=== PATIENT | male | born 1970 | race Caucasian/White ===

== ENCOUNTER 2017-01-31 12:11 | Emergency (ER) | payer MEDICAID ==
[~2017-01-31] VITALS: Wt 69.0 kg
[2017-01-31] MEDS ORDERED: IBUPROFEN 600 MG TAB PO ONE (15:30)
--- NOTE | 2017-01-31 16:01 | RADRPT ---
PROCEDURE: XR Finger. CLINICAL INDICATION: Injury TECHNIQUE: Three views of the right fourth finger are available for review. COMPARISON: None available FINDINGS: There is a mildly comminuted and minimally displaced fracture of the fourth distal phalanx involving the tuft. No evidence for articular surface involvement. The remaining osseous structures are int act. There is no radiopaque foreign body. Overlying soft tissue swelling and irregularity is seen related to the injury. IMPRESSION: 1. Minimally displaced and comminuted fracture of the fourth distal phalanx. RPTAT: AA .Yvon Lucio MD, Date Time Electronically viewed and signed by .Yvon Lucio MD, on 01/31/2017 16:00 .d/
[2017-01-31] MEDS ORDERED: LIDOCAINE 1% (MDV) 20 ML INJ SC ONE (16:30)
[2017-01-31] MEDS ORDERED: CEPH-443 PO (17:01)
[2017-01-31] MEDS ORDERED: ACET1TAB40 PO (17:01)
[2017-01-31] MEDS ORDERED: IBUP-1542 PO (17:01)
--- NOTE | 2017-01-31 17:12 | ERD ---
ER Documentation Chief Complaint Date/Time DATE: 01/31/17 TIME: 17:06 Chief Complaint RIGHT 4TH DIGIT CAUGHT IN CAR DOOR. WITH BLEEDING NOTED HPI This 38-year-old male cut his right fourth digit in a car door today. Complaints of a bleeding laceration of the tip. Denies restricted range of motion weakness. Tetanus is up-to-date per ROS All systems reviewed and are negative except as per history of present illness. Medications Home Meds Active Scripts Ibuprofen* (Motrin*) 600 Mg Tab, 600 MG PO Q6, #15 TAB Prov:JUANITA HAYES MD 01/31/17 Acetaminophen with Codeine (Acetaminophen-Cod #3 Tablet) 1 Each Tablet, 1 TAB PO Q6H Y for PAIN, #7 TAB Prov:JUANITA HAYES MD 01/31/17 Cephalexin* (Keflex*) 500 Mg Capsule, 500 MG PO QID for 7 Days, CAP Prov:JUANITA HAYES MD 01/31/17 Allergies Allergies: Coded Allergies: No Known Allergies (Unverified Allergy, Unknown, 10/16/14) PMhx/Soc History of Surgery: No Anesthesia Reaction: No Hx Neurological Disorder: No Hx Respiratory Disorders: No Hx Cardiac Disorders: No Hx Psychiatric Problems: No Hx Miscellaneous Medical Probl: No Hx Alcohol Use: No Hx Substance Use: No Hx Tobacco Use: No Physical Exam Vitals Vital Signs Date Time Temp Pulse Resp B/P Pulse Ox O2 Delivery O2 Flow Rate FiO2 01/31/17 12:20 98.6 76 20 144/81 97 Physical Exam Const: [] Alert, [id number] per Head: Atraumatic Eyes: Normal Conjunctiva ENT: Normal External Ears, Nose and Mouth. Neck: Full range of motion..~ No meningismus. Resp: Clear to auscultation bilaterally Cardio: Regular rate and rhythm, no murmurs Abd: Soft, non tender, non distended. Normal bowel sounds Skin: No petechiae or rashes. Across the tip of the right fourth digit there is approximately 2 cm laceration parallel to the nail. There is no restricted range of motion weakness or active bleeding. Back: No midline or flank tenderness Ext: No cyanosis, or edema Neur: Awake and alert Psych: Normal Mood and Affect Results 24 hrs Current Medications Medications (Trade) Dose Ordered Sig/Sherif Route PRN Reason Start Time Stop Time Status Last Admin Dose Admin Ibuprofen (Motrin) 600 mg ONCE ONCE PO 01/31/17 15:30 01/31/17 15:31 DC 01/31/17 15:31 Lidocaine (Xylocaine 1% (Mdv) 20 ml) 20 ml ONCE ONCE SC 01/31/17 16:30 01/31/17 16:31 DC Procedures/MDM X-ray right ring finger 2V Interpreted by me: Bones: There is a linear tuft fracture across the right fourth digit. Joints: [No dislocation] Foreign body: [None]. Impression-minimally displaced right fourth digit tuft fracture Right finger laceration was irrigated copiously with normal saline. 2 cc of lidocaine was used to perform a digital block. 5 4-0 nylon sutures were used to reapproximate the laceration. Patient tolerated procedure well and the wound was dressed. Patient is given Keflex 500 mg by mouth for possible open fracture. Patient was placed in the right fourth digit metal splint. Splint Assessment: Neurovascularly intact post splint placement with good fit. Patient presents with a possible open fracture the right fourth digit distally with a tuft fracture. He was discharged home with prescription of Keflex, Tylenol 3 and ibuprofen and instructed to follow-up his primary doctor in orthopedist for further evaluation management. Patient was advised to have a wound check in 2 days and suture removal in 10 days. He was advised that he may need authorization from his primary care doctor. Departure Diagnosis: Primary Impression: Fracture Additional Impression: Laceration Condition: Stable Patient Instructions: Fracture, Finger (Open), Laceration, Hand Referrals: RICARDO SCHWARTZ MD Additional Instructions: cheque 2 reed para cheque para infeccion. cheque 10 reed para saca los puntos / grapas. Va al quiñones doctor/ specialista para mas evaluacon en el proximo semana. posiblemente necesita autorizado de quiñones doctor primario para specialista. Regresa para fiebre, o mas o nueva simptomas. JUANITA HAYES MD Jan 31, 2017 17:12
[2017-01-31 17:14] VITALS: BP 129/70; PULSE 66; RESP 16
== END 2017-01-31 17:17 | disposition home or self-care (01) ==
LOC: FTE 12:11
DX: S62.634A Displaced fracture of distal phalanx of right ring finger, initial encounter for closed fracture (principal); W23.0XXA Caught, crushed, jammed, or pinched between moving objects, initial encounter; Y92.9 Unspecified place or not applicable
CPT/HCPCS: 12001; 73140; Z7502; Z7610

== ENCOUNTER 2017-02-02 07:28 | Emergency (ER) | payer MEDICAID ==
[~2017-02-02] VITALS: Wt 70.0 kg
[~2017-02-02 07:28] MED LIST: ACET1TAB40 PO; CEPH-443 PO; IBUP-1542 PO
[2017-02-02] MEDS ORDERED: FLUT9.9S NASAL (08:39)
[2017-02-02] MEDS ORDERED: CETI10CA PO (08:39)
--- NOTE | 2017-02-02 08:44 | ERD ---
ER Documentation Chief Complaint Date/Time DATE: 02/02/17 TIME: 08:41 Chief Complaint RIGHT RING FINGER SUTURE HERE FOR RECHECK HPI This a 46-year-old male who presents to the emergency department today for a wound check of a laceration that he sustained a couple of days ago after slamming his hand in a door. States he has some sinus congestion. Denies any fevers or chills. States he is taking his antibiotics as prescribed. Denies any significant pain. ROS All systems reviewed and are negative except as per history of present illness. Medications Home Meds Active Scripts Cetirizine Hcl* (Zyrtec*) 10 Mg Capsule, 10 MG PO DAILY, #14 TAB.CHEW Prov:HÉCTOR MIN PA-C 02/02/17 Fluticasone Propionate (Flonase Allergy Relief) 9.9 Ml [place].susp, 2 SPRAY NASAL DAILY, #1 BOTTLE TO EACH NOSTRIL Prov:HÉCTOR MIN PA-C 02/02/17 Ibuprofen* (Motrin*) 600 Mg Tab, 600 MG PO Q6, #15 TAB Prov:JUANITA HAYES MD 01/31/17 Acetaminophen with Codeine (Acetaminophen-Cod #3 Tablet) 1 Each Tablet, 1 TAB PO Q6H Y for PAIN, #7 TAB Prov:JUANITA HAYES MD 01/31/17 Cephalexin* (Keflex*) 500 Mg Capsule, 500 MG PO QID for 7 Days, CAP Prov:JUANITA HAYES MD 01/31/17 Allergies Allergies: Coded Allergies: No Known Allergies (Unverified Allergy, Unknown, 10/16/14) PMhx/Soc Medical and Surgical Hx: pt denies Medical Hx, pt denies Surgical Hx History of Surgery: No Anesthesia Reaction: No Hx Neurological Disorder: No Hx Respiratory Disorders: No Hx Cardiac Disorders: No Hx Psychiatric Problems: No Hx Miscellaneous Medical Probl: No Hx Alcohol Use: No Hx Substance Use: No Hx Tobacco Use: No Smoking Status: Never smoker Physical Exam Vitals Vital Signs Date Time Temp Pulse Resp B/P Pulse Ox O2 Delivery O2 Flow Rate FiO2 02/02/17 07:35 98.0 77 21 140/81 98 Physical Exam Const: No acute distress Head: Atraumatic Eyes: Normal Conjunctiva ENT: Normal External Ears, Nose and Mouth. Neck: Full range of motion..~ No meningismus. Resp: Clear to auscultation bilaterally Cardio: Regular rate and rhythm, no murmurs Skin: Right hand fourth finger with no erythema or warmth. No purulent drainage. Evidence of sutures placed. Back: No midline or flank tenderness MSK: Right hand fourth finger with no erythema or warmth. No purulent drainage. Full active range of motion. Evidence of sutures placed. Neur: Awake and alert Psych: Normal Mood and Affect Procedures/MDM This 38-year-old male who presents to the emergency department today for wound check of sutures that he had placed 2 days ago after sustaining an injury of slamming his finger in a door. On physical exam wound appears to be healing well and is well approximated. There is no purulent drainage, warmth, significant tenderness. Low suspicion for sepsis, deep space infection, cellulitis. Patient was instructed to return in 5 to days for suture removal. He was instructed to continue taking his antibiotics as prescribed. Patient was also complaining of some sinus congestion. He is afebrile and otherwise well-appearing. Do not feel he requires antibiotics at this time. Patient was given a prescription for Flonase and Zyrtec. At this time the patient is stable for discharge and outpatient management. Patient should follow up with their PCP in the next 1-2 days. They may return to the emergency department sooner for any persistent or worsening of symptoms. Patient understood and agreed with the plan. Departure Diagnosis: Primary Impression: Encounter for wound re-check Additional Impression: Sinus congestion Condition: Fair Patient Instructions: Wound Care, Wound Check, Lac F/U (No Infection) [facility]errals[facility] Usted se lyons hecho un examen mdico de control que le indica que no est en lillian condicin que requiera tratamiento urgente en el Departamento de Emergencia. Un estudio ms profundo y el tratamiento de quiñones condicin pueden esperar sin ningn riesgo hasta que usted sea atendida/o en el consultorio de quiñones mdico o lillian cl vince. Es responsabilidad suya arreglar lillian nilesh para el seguimiento del funmilayo. MANEJO DE CONDICIONES NO URGENTES EN EL FUTURO 1) Si usted tiene un mdico de atencin primaria: Usted debera llamar a quiñones mdico de atencin primaria antes de venir al departamento de emergencia. Despus de las horas de consultorio, quiñones doctor o quiñones asociado/a est disponible por telfono. El mdico o enfermero de kenan en el servicio telefnico puede asesorarle por tom medio para atender el problema, o funmilayo contrario se puede programar lillian nilesh. 2) Si usted no tiene un mdico de atencin primaria: Llame al mdico o clnica de referencia que aparece abajo thom las horas de consultorio para hacer lillian nilesh para que le vean. CLINICAS: [facility] [phone] [address] [facility] [phone] [facility] [phone] [address] [facility]. [facility] [phone] [address] [facility] [facility] [phone] [address] [facility] [phone] [address] Additional Instructions: Llame al doctor MAANA y deandre lillian NILESH PARA DENTRO DE 1-2 PIKE.Dgale a la secretaria que nosotros le instruimos hacer esta nilesh.Avise o llame si quiñones condicin se empeora antes de la nilesh. Regresa aqui si peor o no mejor. Keep wound clean and dry Return in 5-7 days for suture removal Continue taking antibiotics as prescribed Take Flonase and Zyrtec for nasal congestion HÉCTOR MIN PA-C Feb 02, 2017 08:44
== END 2017-02-02 09:18 | disposition home or self-care (01) ==
LOC: FTE 07:28
DX: Z48.01 Encounter for change or removal of surgical wound dressing (principal); R09.81 Nasal congestion
CPT/HCPCS: 99283

== ENCOUNTER 2017-02-09 06:32 | Emergency (ER) | payer MEDICAID ==
[~2017-02-09] VITALS: Ht 165.1 cm; Wt 79.7 kg
[~2017-02-09 06:32] MED LIST changes: +CETI10CA PO; +FLUT9.9S NASAL
[2017-02-09 06:35] VITALS: Ht 165.1 cm; Wt 79.7 kg
--- NOTE | 2017-02-09 16:30 | ERD ---
ER Documentation Chief Complaint Date/Time DATE: 02/09/17 TIME: 16:24 Chief Complaint right 4th digit suture removal HPI 46-year-old male presented to ED today for suture removal. Patient stated that he still has pain on his injured finger, but denies increase erythema or swelling. Denies fever or chills. ROS All systems reviewed and are negative except as per history of present illness. Medications Home Meds Active Scripts Cetirizine Hcl* (Zyrtec*) 10 Mg Capsule, 10 MG PO DAILY, #14 TAB.CHEW Prov:HÉCTOR MIN PA-C 02/02/17 Fluticasone Propionate (Flonase Allergy Relief) 9.9 Ml [place].susp, 2 SPRAY NASAL DAILY, #1 BOTTLE TO EACH NOSTRIL Prov:HÉCTOR MIN PA-C 02/02/17 Ibuprofen* (Motrin*) 600 Mg Tab, 600 MG PO Q6, #15 TAB Prov:JUANITA HAYES MD 01/31/17 Acetaminophen with Codeine (Acetaminophen-Cod #3 Tablet) 1 Each Tablet, 1 TAB PO Q6H Y for PAIN, #7 TAB Prov:JUANITA HAYES MD 01/31/17 Cephalexin* (Keflex*) 500 Mg Capsule, 500 MG PO QID for 7 Days, CAP Prov:JUANITA HAYES MD 01/31/17 Allergies Allergies: Coded Allergies: No Known Allergies (Unverified Allergy, Unknown, 10/16/14) PMhx/Soc Medical and Surgical Hx: pt denies Medical Hx, pt denies Surgical Hx History of Surgery: No Anesthesia Reaction: No Hx Neurological Disorder: No Hx Respiratory Disorders: No Hx Cardiac Disorders: No Hx Psychiatric Problems: No Hx Miscellaneous Medical Probl: No Hx Alcohol Use: No Hx Substance Use: No Hx Tobacco Use: No Smoking Status: Never smoker Physical Exam Vitals Vital Signs Date Time Temp Pulse Resp B/P Pulse Ox O2 Delivery O2 Flow Rate FiO2 02/09/17 06:35 97.6 76 18 131/76 99 Physical Exam General impression: Well-developed, well-nourished. Alert, oriented, in no acute distress Head: Normocephalic, atraumatic. Respiration: Normal respiratory effort. Lungs clear to auscultate bilaterally. No wheezes, rales or rhonchi. Cardiovascular: Regular rate and rhythm. No murmurs or extra heart sounds. Extremities: Suture noted on the dorsal aspect the right fourth finger. Full range of motion noted on the affected finger. Neurovascularly intact Neuro: Mental status normal, speech normal. [employer] grossly intact. Skin: Normal turgor. No rash or lesions. Psych: Normal mood and affect. Procedures/MDM Suture Removal by me: Sutures removed with tweezers and scissors without incident. Wound shows no evidence of infection, foreign body, neurologic injury, vascular injury, open joint or tendon laceration. Patient is noted to have a tuft fracture of the injured finger all the initial visit, however he is not wearing a splint. The area of injury was immobilized with a metal finger splint. Patient was noted to be comfortable and neurovascularly intact both before and after the immobilization. Patient to follow up PRN. Departure Diagnosis: Primary Impression: Encounter for removal of sutures Condition: Good Patient Instructions: Fracture, Finger (Open), Suture Removal, No Complication Referrals: [facility] Usted se lyons hecho un examen mdico de control que le indica que no est en lillian condicin que requiera tratamiento urgente en el Departamento de Emergencia. Un estudio ms profundo y el tratamiento de quiñones condicin pueden esperar sin ningn riesgo hasta que usted sea atendida/o en el consultorio de quiñones mdico o lillian cl vince. Es responsabilidad suya arreglar lillian nilesh para el seguimiento del funmilayo. MANEJO DE CONDICIONES NO URGENTES EN EL FUTURO 1) Si usted tiene un mdico de atencin primaria: Usted debera llamar a quiñones mdico de atencin primaria antes de venir al departamento de emergencia. Despus de las horas de consultorio, quiñones doctor o quiñones asociado/a est disponible por telfono. El mdico o enfermero de kenan en el servicio telefnico puede asesorarle por tom medio para atender el problema, o funmilayo contrario se puede programar lillian nilesh. 2) Si usted no tiene un mdico de atencin primaria: Llame al mdico o clnica de referencia que aparece abajo thom las horas de consultorio para hacer lillian nilesh para que le vean. CLINICAS: [facility] [phone] [facility] [phone] [facility] [phone] [place] [phone] [place] [address] [phone] [place] [phone] [address] Additional Instructions: Llame al doctor nombrado abajo (Referral Sources) MAANA y deandre lillian NILESH PARA DENTRO DE LILLIAN SEMANA. Dgale a la secretaria que nosotros le instruimos hacer esta nilesh.Avise o llame si quiñones condicin se empeora antes de la nilesh. HAN LUJAN NP Feb 09, 2017 16:30
== END 2017-02-09 07:18 | disposition home or self-care (01) ==
LOC: FTE 06:32
DX: Z48.02 Encounter for removal of sutures (principal)
CPT/HCPCS: 29130; Z7502

== ENCOUNTER 2017-08-12 10:22 | Emergency (ER) | payer MEDICAID ==
[~2017-08-12] VITALS: Wt 78.5 kg
[2017-08-12] MEDS ORDERED: SLF10OP5 RIGHT EYE (10:56)
[2017-08-12] MEDS ORDERED: TETRACAINE 0.5% 4 ML OPH LEFT EYE ONE (11:00)
[2017-08-12] MEDS ORDERED: FLUORESCEIN STRIP RIGHT EYE ONE (11:00)
--- NOTE | 2017-08-12 12:12 | ERD ---
ER Documentation Chief Complaint Date/Time DATE: 08/12/17 TIME: 11:52 Chief Complaint R EYE PAIN X 2 DAY HPI 47-year-old male complaining of foreign body in right eye. Patient believes there is a piece of trash in his eye and is unsure exactly what the object is. Patient wears glasses but no contact lenses. Denies changes in vision. Has not used any medications in the eye. Medical problems: Denies NKDA Surgical history: Denies ROS All systems reviewed and are negative except as per history of present illness. Medications Home Meds Active Scripts Sulfacetamide Sodium* (Bleph-10*) 10%-5 Ml Opht Drops, 1 DROP RIGHT EYE Q3H, #1 EA Prov:ABEL SOLORIO PA-C 08/12/17 Cetirizine Hcl* (Zyrtec*) 10 Mg Capsule, 10 MG PO DAILY, #14 TAB.CHEW Prov:HÉCTOR MIN PA-C 02/02/17 Fluticasone Propionate (Flonase Allergy Relief) 9.9 Ml [place].susp, 2 SPRAY NASAL DAILY, #1 BOTTLE TO EACH NOSTRIL Prov:HÉCTOR MIN PA-C 02/02/17 Ibuprofen* (Motrin*) 600 Mg Tab, 600 MG PO Q6, #15 TAB Prov:JUANITA HAYES MD 01/31/17 Acetaminophen with Codeine (Acetaminophen-Cod #3 Tablet) 1 Each Tablet, 1 TAB PO Q6H Y for PAIN, #7 TAB Prov:JUANITA HAYES MD 01/31/17 Cephalexin* (Keflex*) 500 Mg Capsule, 500 MG PO QID for 7 Days, CAP Prov:JUANITA HAYES MD 01/31/17 Allergies Allergies: Coded Allergies: No Known Allergies (Unverified Allergy, Unknown, 10/16/14) PMhx/Soc History of Surgery: No Anesthesia Reaction: No Hx Neurological Disorder: No Hx Respiratory Disorders: No Hx Cardiac Disorders: No Hx Psychiatric Problems: No Hx Miscellaneous Medical Probl: No Hx Alcohol Use: No Hx Substance Use: No Hx Tobacco Use: No Smoking Status: Former smoker Physical Exam Vitals Vital Signs Date Time Temp Pulse Resp B/P Pulse Ox O2 Delivery O2 Flow Rate FiO2 9/22/17 10:27 98.0 79 18 129/83 99 Physical Exam GENERAL: The patient is well-appearing, well-nourished, in no acute distress HEENT: Foreign body noted over the cornea. No active drainage. Pupils equal round and reactive to light. Extraocular movements intact. NECK: C-spine is soft and supple. There is no meningismus. There is no cervical lymphadenopathy. No JVD. No bruits. No goiter. CHEST: Clear to auscultation bilaterally. There are no rales, wheezes or rhonchi. HEART: Regular rate and rhythm. No murmurs, clicks, rubs or gallops. No S3 or S4. Results 24 hrs Current Medications Medications (Trade) Dose Ordered Sig/Sherif Route PRN Reason Start Time Stop Time Status Last Admin Dose Admin Tetracaine HCl (Tetracaine 0.5% Steri-Unit Tereza) 1 drop ONCE ONCE LEFT EYE 08/12/17 11:00 08/12/17 11:01 DC Fluorescein Sodium (Wshwu-N-Byqrp) 1 strip ONCE ONCE RIGHT EYE 08/12/17 11:00 08/12/17 11:01 DC Procedures/MDM ER course: Tetracaine and fluorescein stain used to see foreign body. Using insulin syringe foreign body was removed. Patient tolerated procedure well. No iatrogenic injury. MDM: I have low suspicion for visual deficits or ocular injuries. Patient will be placed on prophylactic antibacterial drops given foreign body was removed. Patient is recommended to follow-up with primary care within 1-2 days for close evaluation. Patient still symptoms change or worsen to return to the ER. All questions answered at discharge. Departure Diagnosis: Primary Impression: Eye foreign body Condition: Stable Patient Instructions: Corneal Foreign Body, Removed Referrals: [facility] YOU HAVE RECEIVED A MEDICAL SCREENING EXAM AND THE RESULTS INDICATE THAT YOU DO NOT HAVE A CONDITION THAT REQUIRES URGENT TREATMENT IN THE EMERGENCY DEPARTMENT. FURTHER EVALUATION AND TREATMENT OF YOUR CONDITION CAN WAIT UNTIL YOU ARE SEEN IN YOUR DOCTORS OFFICE WITHIN THE NEXT 1-2 DAYS. IT IS YOUR RESPONSIBILITY TO MAKE AN APPOINTMENT FOR FOLOW-UP CARE. IF YOU HAVE A PRIMARY DOCTOR --you should call your primary doctor and schedule an appointment IF YOU DO NOT HAVE A PRIMARY DOCTOR YOU CAN CALL OUR PHYSICIAN REFERRAL HOTLINE AT IF YOU CAN NOT AFFORD TO SEE A PHYSICIAN YOU CAN CHOSE FROM THE FOLLOWING [facility] [address] [facility] [address] [facility] [facility] [address] [facility] [address] [facility] [address] [facility]. [facility] [address] Additional Instructions: FOLLOW UP WITH YOUR PRIMARY CARE PHYSICIAN TOMORROW.Return to this facility if you are not improving as expected. ABEL SOLORIO PA-C Aug 12, 2017 12:06
== END 2017-08-12 11:00 | disposition home or self-care (01) ==
LOC: FTE 10:22
DX: T15.01XA Foreign body in cornea, right eye, initial encounter (principal); X58.XXXA Exposure to other specified factors, initial encounter; Y92.9 Unspecified place or not applicable; Z87.891 Personal history of nicotine dependence
CPT/HCPCS: 65220; Z7502; Z7610

== ENCOUNTER 2018-10-04 06:57 | Emergency (ER) | END 2018-10-04 08:49 | disposition home or self-care (01) ==